=== PATIENT | female | born 1985 | race Caucasian/White ===

== ENCOUNTER 2024-06-04 14:36 | Emergency (ER) | payer MEDICAID, SELFPAY ==
[2024-06-04 14:37] VITALS: PULSE 87; O2SAT 98; BMI 42.9
[2024-06-04 14:54] VITALS: BP 163/83; PULSE 102; RESP 18; TEMP 36.9; O2SAT 98
--- NOTE | 2024-06-04 15:05 | PD.EDRME ---
Rapid Medical Screening Exam [facility] Arrival date/time: 06/04/24 14:36 39-year-old female presents to the emergency department complains of generalized weakness, fatigue, back pain and muscle spasms Chief Complaint: Back Pain/Injury Time Seen by Provider: 06/04/24 14:52 Vital signs: Vital Signs Temperature 98.5 F 06/04/24 14:54 Pulse Rate 102 H 06/04/24 14:54 Respiratory Rate 18 06/04/24 14:54 Blood Pressure 163/83 H 06/04/24 14:54 Pulse Oximetry (%) 98 06/04/24 14:54 Oxygen Delivery Method Room Air 06/04/24 14:54
[2024-06-04 15:44] LABS: Basophils # (Auto) 0.1 Thou/mm3 (0.0-0.2); Basophils % (Auto) 1 % (0-2.5); Eosinophils % (Auto) 0 % (0-10); Hematocrit 37.9 % (36.0-46.0); Hemoglobin 11.9 g/dL (12.0-16.0); Immature Granulocytes % (Auto) 0 % (0-0); Immature Granulocytes Auto 0.02 Thou/mm3 (0.00-0.00); Lymphocytes # (Auto) 1.3 Thou/mm3 (1.0-4.8); Lymphocytes % (Auto) 22 % (10-50); Mean Corpuscular HGB Conc 31.4 g/dl (31.0-37.0); Mean Corpuscular Volume 86 fL (80-100); Monocytes # (Auto) 0.3 Thou/mm3 (0.0-0.8); Monocytes % (Auto) 5 % (0-12); Neutrophils # (Auto) 4.4 Thou/mm3 (1.8-7.7); Neutrophils % (Auto) 72 % (37-80); Nucleated Red Blood Cell % 0 /100 WBC (0); Platelet Count 400 Thou/mm3 (140-440); RDW Standard Deviation 50.9 fL (36.4-46.3); Red Blood Count 4.41 Miln/mm3 (4.00-5.20); White Blood Count 6.1 Thou/mm3 (3.6-11.0)
[2024-06-04 15:53] LABS: Amphetamine/Methamp Scrn,U Negative (Negative); Barbiturate Screen,Urine Negative (Negative); Benzodiazepines Screen,Urine Positive (Negative); Benzoylecgonine Screen, Ur Negative (Negative); Fentanyl Screen,Urine Negative (Negative); Opiate Screen,Urine Negative (Negative); THC Screen,Urine Positive (Negative)
[2024-06-04 15:57] LABS: HCG,Qualitative Serum Negative
[2024-06-04 15:58] LABS: Partial Thromboplastin Time 33.9 Seconds (22.0-36.0); Prothrombin Time 11.1 Seconds (9.0-12.2)
[2024-06-04 16:09] LABS: Alanine Aminotransferase 15 U/L (10-49); Albumin, Serum 5.3 gm/dL (3.5-5.0); Albumin/Globulin Ratio 2.1 (1.2-2.2); Alcohol, Blood Medical < 10.0 mg/dL (0-10.0); Alkaline Phosphatase 68 U/L (46-116); Anion Gap 10 (7-16); Aspartate Amino Transferase < 8 U/L (0-34); BUN/Creatinine Ratio 9 Ratio (12-20); Bilirubin,Total 0.2 mg/dL (0.3-1.2); Blood Urea Nitrogen 8 mg/dL (9-23); Calcium 9.5 mg/dL (8.3-10.6); Calcium (Corrected) 9.5 mg/dL (8.5-10.1); Carbon Dioxide 24.4 mMol/L (20.0-31.0); Chloride 105 mMol/L (98-107); Creatinine (Component) 0.9 mg/dL (0.6-1.3); Estimated Creatinine Clearance 103.6 mL/min (>60); Globulin 2.5 gm/dL (2.3-3.5); Glucose 104 mg/dL (74-106); Magnesium 1.7 mg/dL (1.6-2.6); Osmolality,Calculated 275 (275-295); Potassium 4.1 mMol/L (3.4-5.1); Sodium 139 mMol/L (136-145); Total Protein 7.8 gm/dL (5.7-8.2); eGFR > 60 See Note
--- NOTE | 2024-06-04 18:29 | XR_ITS ---
Examination: CT lumbar spine, without contrast. 2-D sagittal reconstructions. 2-D coronal reconstructions. 3-D reconstructions. Date and time of exam:June 04, 2024 1847 hrs. Indications: Low back pain radiating down both legs beginning 3 days ago CTDI: vol (mGy):27 DLP: (mGycm):890 Technique: Multiple 1.25 mm axial sections of the lumbar spine without intravenous contrast have been obtained. 2-D sagittal and coronal reconstructions have been obtained. 3-D reconstructions have been obtained. Low dose protocols were performed. One or more of the following dose reduction techniques were used; automated exposure control, adjustment of the mA and/or KV according to patient size, use of iterative reconstruction technique. Findings: Mild osteopenia Moderate to advanced disc narrowing L5-S1 No spondylolisthesis L5-S1 3 mm central lumbar disc bulge contiguous with the S1 nerve roots L4-L5 2 mm central lumbar disc bulge L3-L4 no disc protrusion L2-L3 no disc protrusion L1-L2 no disc protrusion Impression: Moderate to advanced degenerative disc disease L5-S1 L5-S1 3 mm central lumbar disc bulge contiguous with the right and left S1 nerve roots L4-L5 2 mm central lumbar disc bulge As clinically warranted, MRI lumbar spine without contrast follow-up would be preferable in assessing the full extent of acquired soft tissue spinal stenosis
--- NOTE | 2024-06-04 18:30 | EDNOTE_ITS ---
<Statement entered by Adriana Howell MD - 06/13/24 16:24> As co-signing physician, I was present and available for consult prn. I concur with the plan and care as documented by the midlevel provider. ED General RME/HPI General Chief complaint: Back Pain/Injury Stated complaint: CHRONIC BACK/LEG PAIN Time Seen by Provider: 06/04/24 14:52 Arrival date/time: 06/04/24 14:36 CC: Twitching in her legs and arms HPI ongoing for the past 2 to 3 days patient has very anxious and emotional stating she has had ongoing issue with this for a long time . Patient states she was seen here for drinking alcohol to avoid the pain and twitching in her legs, patient states has been unable to see her PCP. Denies bowel or bladder symptoms saddle anesthesia numbness tingling or weakness in the lower extremities. Patient is tearful but not in any acute distress. RME / HPI RME / HPI narrative: 06/04/24 14:36 39-year-old female presents to the emergency department complains of generalized weakness, fatigue, back pain and muscle spasms Related Data Home Medications ?Medication ?Instructions ?Recorded ?Confirmed divalproex 500 mg tablet,delayed 1,000 mg PO BID 11/24/20 11/24/20 release ferrous sulfate 325 mg (65 mg 325 mg PO QDAY 11/24/20 04/15/24 iron) tablet (FeroSul) ibuprofen 600 mg tablet 400 mg PO Q8H PRN Pain 11/24/20 04/15/24 tizanidine 2 mg capsule 2 mg PO QHSPRN PRN Muscle Spasm 11/24/20 11/24/20 tizanidine 6 mg capsule 6 mg PO BID 04/15/24 04/15/24 Previous Rx's ?Medication ?Instructions ?Recorded albuterol sulfate 90 mcg/actuation 1 inh inhalation QID PRN shortness 11/28/23 aerosol inhaler of breath or wheezing #8.5 grams Allergies Allergy/AdvReac Type Severity Reaction Status Date / Time adhesive tape Allergy Severe RASH Verified 06/04/24 14:42 tramadol Allergy Severe BARBA Verified 06/04/24 14:42 zolpidem AdvReac Severe HALLUCINATI Verified 06/04/24 14:42 ONS Review of Systems Review of Systems Narrative Review of Systems: GEN: No fever, no chills, no weight loss EYES: No discharge, no visual changes, no pain HEENT: No ear pain, no congestion, no sore throat PULM: No shortness of breath, no cough, no congestion CV: No chest pain, no dyspnea on exertion, no palpitations GI: No nausea, no vomiting, no diarrhea, no pain, no constipation : No frequency, no urgency, no dysuria MUSC/SKEL: No joint pain, no back pain, + shaking and spasms in the arms and legs SKIN: No rash PSYCH: No hallucinations, no depression HEME/LYMPH: No easy bleeding or bruising tendencies NEURO: No weakness, no headache Past Medical History Past Medical History CARDIAC: Negative Cardiac Disorders or Congestive Heart Failure RESPIRATORY: Positive Asthma; Negative Chronic Obstructive Pulmonary Disease (COPD) GENITOURINARY: Negative Renal Disease ENDOCRINE: Negative Diabetes Mellitus Type 1 or Diabetes Mellitus Type 2 HEMATOLOGIC: Negative Sickle Cell Disease PSYCHO/SOCIAL: Positive Anxiety OTHER HISTORY: Positive Falls Social History SMOKING STATUS: Never smoker ED Exam Narrative Physical exam: [General: Obese very anxious but not in any acute distress Head normocephalic HEENT: Within acceptable limits Neck is supple nontender Chest equal chest rise nontender to palpation Respiratory: Clear to auscultation no wheezes crackles or rubs CV: Rate rhythm is regular no murmurs rubs or clicks Abdomen is distended secondary to body habitus soft nontender no masses positive bowel sounds all 4 quadrants Back: No CVA tenderness no spinous process tenderness from cervical spine thoracic and lumbar spine Skin: Intact no petechiae rash induration ulceration or crepitus Extremities: Moving all extremity against resistance cap refill less than 2 seconds neurosensory intact Neuro: Awake alert oriented x3 Glascow coma 15 no focal deficits] Course Quality Measures VTE prophylaxis Orders Category Date Time Status CT lumbar spine wo con Stat Exams 06/04/24 18:29 Completed Alcohol, Blood Medical Stat Lab 06/04/24 15:14 Completed CBC Stat Lab 06/04/24 15:14 Completed Comprehensive Metabolic Panel Stat Lab 06/04/24 15:14 Completed Drug Screen,Urine Stat Lab 06/04/24 15:20 Completed HCG,Qualitative Serum Stat Lab 06/04/24 15:14 Completed Mag [Magnesium] Stat Lab 06/04/24 15:14 Completed Partial Thromboplastin Time Stat Lab 06/04/24 15:14 Completed Prothrombin Time with INR Stat Lab 06/04/24 15:14 Completed Type and Screen Stat Lab 06/04/24 15:14 Completed Diazepam Inj [Valium Inj] Med 06/04/24 20:30 Discontinued 5 mg IM X1 ONE Ketorolac Inj [Toradol Inj] Med 06/04/24 20:28 Discontinued 30 mg IM X1 ONE Vital Signs Vital signs: Vital Signs Temperature 98.5 F 06/04/24 14:54 Pulse Rate 102 H 06/04/24 14:54 Respiratory Rate 18 06/04/24 14:54 Blood Pressure 163/83 H 06/04/24 14:54 Pulse Oximetry (%) 98 06/04/24 14:54 Oxygen Delivery Method Room Air 06/04/24 14:54 [facility] Patient data External records reviewed:: [facility] previous records Clinical information provided by:: none Social determinants that could affect healthcare access:: none Patient has the following chronic illnesses:: Alcoholism How is presenting disease/condition affected by chronic disease/condition?: u neffected by Evaluation data The following diagnostics were reviewed and interpreted by me:: lab results and radiology exam(s) Lab and/or radiology exams considered but not ordered:: CBC shows no acute leukocytosis anemia thrombocytopenia Coags within acceptable limits CMP shows no acute electrolyte imbalances renal impairment transaminitis or T. bili elevation hCG is negative Urine is positive for benzos and THC CT lumbar spine is negative for any acute finding requires emergent or immediate intervention. Interpretation Summary: At 1915, the patient was observed ambulating without complication. Had extensive conversation with the patient's if she has a complete line up with her PCP pain management will refer to the edi specialist as well as a neurologist appointment coming up in 7 days. The patient's just wants a shot so that she can go to sleep. The patient states she cannot live with his constant pain. The patient is not suicidal not homicidal but is looking for resolution of this chronic pain that she has. At this time I explained to her that she has no acute finding requires emergent or immediate interventions in the emergency room, and happy to accommodate her as much as I possibly can. The patient is refusing medications as she says the OxyContin's as well as the gabapentin's do not work. Patient will be discharged home to follow-up with primary care provider. Medications Medications considered but not ordered:: Plan Medication administrations:: Medication Administration History Discontinued Medications Diazepam (Diazepam Inj 5 Mg/Ml Vial 2 Ml) 5 mg IM X1 ONE Stop: 06/04/24 20:31 Last Admin: 06/04/24 20:47 Dose: 5 mg Documented By: SE Ketorolac Tromethamine (Ketorolac Inj 60 Mg/2 Ml Vial) 30 mg IM X1 ONE Stop: 06/04/24 20:29 Last Admin: 06/04/24 20:31 Dose: Not Given Documented By: SE Non-Admin Reason: Cancelled by Provider Diagnosis Consultations Consultation(s) initiated? (list below): No Diagnosis Differential Diagnosis ED Complaint MDM: Chronic MSK lumbar back pain upper back pain Most likely diagnosis given after review of the tests above:: Chronic Admission Indicated Admission indicated?: not indicated Explain why admission is indicated or not indicated:: Stable follow-up Admission Request Was there a request for admission?: No Disposition Plan Disposition Plan: Discharge Discharge Attestation Discharge Attestation: The patient and all family members were given an opportunity to ask questions and understood the discharge instructions. Discharge instructions specifically effects, indications for sooner follow up or return to the emergency department, and the expected course of current diagnosis. Patient condition: Stable Medical Decision Making Differential Diagnosis Differential Diagnosis: Chronic MSK lumbar back pain upper back pain Lab Data 06/04/24 15:14 06/04/24 15:14 Labs: Lab Results 06/04/24 06/04/24 Range/Units 15:14 15:20 WBC 6.1 (3.6-11.0) Thou/mm3 RBC 4.41 (4.00-5.20) Miln/mm3 Hgb 11.9 L (12.0-16.0) g/dL Hct 37.9 (36.0-46.0) % MCV 86 (80-100) fL MCH 27.0 (25.0-35.0) pg MCHC 31.4 (31.0-37.0) g/dl RDW Std Deviation 50.9 H (36.4-46.3) fL Plt Count 400 (140-440) Thou/mm3 Neut % (Auto) 72 (37-80) % Lymph % (Auto) 22 (10-50) % Cavalier % (Auto) 5 (0-12) % Eos % (Auto) 0 (0-10) % Baso % (Auto) 1 (0-2.5) % Neut # (Auto) 4.4 (1.8-7.7) Thou/mm3 Lymph # (Auto) 1.3 (1.0-4.8) Thou/mm3 Cavalier # (Auto) 0.3 (0.0-0.8) Thou/mm3 Eos # (Auto) 0.0 (0.0-0.5) Thou/mm3 Baso # (Auto) 0.1 (0.0-0.2) Thou/mm3 Immature Gran # (Auto) 0.02 H (0.00-0.00) Thou/mm3 Absolute Nucleated RBC 0.00 (0.00-0.00) Thou/mm3 Immature Gran % 0 (0-0) % Nucleated RBC % 0 (0) /100 WBC PT 11.1 (9.0-12.2) Seconds INR 1.0 (0.9-1.3) APTT 33.9 (22.0-36.0) Seconds Sodium 139 (136-145) mMol/L Potassium 4.1 (3.4-5.1) mMol/L Chloride 105 (98-107) mMol/L Carbon Dioxide 24.4 (20.0-31.0) mMol/L Anion Gap 10 (7-16) BUN 8 L (9-23) mg/dL Creatinine 0.9 (0.6-1.3) mg/dL Estim Creat Clear Calc 103.6 (>60) mL/min eGFR > 60 (60 - ) See Note BUN/Creatinine Ratio 9 L (12-20) Ratio Glucose 104 (74-106) mg/dL Calculated Osmolality 275 (275-295) Calcium 9.5 (8.3-10.6) mg/dL Corrected Calcium 9.5 (8.5-10.1) mg/dL Magnesium 1.7 (1.6-2.6) mg/dL Total Bilirubin 0.2 L (0.3-1.2) mg/dL AST < 8 (0-34) U/L ALT 15 (10-49) U/L Alkaline Phosphatase 68 (46-116) U/L Total Protein 7.8 (5.7-8.2) gm/dL Albumin 5.3 H (3.5-5.0) gm/dL Globulin 2.5 (2.3-3.5) gm/dL Albumin/Globulin Ratio 2.1 (1.2-2.2) HCG, Qual Negative Urine Opiates Screen Negative (Negative) Urine Fentanyl Screen Negative (Negative) Ur Barbiturates Screen Negative (Negative) U Amphetamin/Meth Scrn Negative (Negative) U Benzodiazepines Scrn Positive A (Negative) U Cocaine Metab Screen Negative (Negative) U Marijuana (THC) Screen Positive A (Negative) Ethyl Alcohol < 10.0 (0-10.0) mg/dL Blood Type AB Positive Antibody Screen NEGATIVE Blood Bank Wristband ID Yes Discharge Plan Plan Patient Disposition: HOME (Self Care) Prescriptions/Referrals Prescriptions/Med Rec: No Action divalproex 500 mg Tablet,Delayed Release (Dr/Ec) 1,000 mg PO BID ferrous sulfate [FeroSul] 325 mg (65 mg iron) Tablet 325 mg PO QDAY ibuprofen 600 mg Tablet 400 mg PO Q8H PRN (Reason: Pain) tizanidine 2 mg Capsule 2 mg PO QHSPRN PRN (Reason: Muscle Spasm) Rx Instructions: take 1 to 2 tabs at bedside. no more than 2 tabs daily albuterol sulfate 90 mcg/actuation HFA aerosol inhaler 1 inh inhalation QID PRN (Reason: shortness of breath or wheezing) Qty: 8.5 0RF tizanidine 6 mg capsule 6 mg PO BID Patient Comments: take 1 capsule by mouth twice a day if needed for muscle spasm MAY CAUSE DROWSINESS, DIZZNESS Referrals: Ralph Hidalgo MD [Physician] - In 1 week No Primary/Family,Physician [Primary Care Provider] - In 1 week Problem List Clinical Impression: Chronic pain Patient/Caregiver Discharge Instructions Education Materials: ED Chronic Pain Additional Instructions: Follow-up with pain management and the edi specialist. Consider exercising in a pool. Print Language: Greenlandic Stand Alone Forms: [employer] Award Info., Work/School Release, Patient Portal Info Letter PA/SKYLA Supervising Physician JUVE/SKYLA Supervising Physician: Tiffany Ram ENP
[2024-06-04] MEDS: DIAZEPAM INJ 5 MG/ML VIAL 2 ML IM (20:47)
== END 2024-06-04 20:52 | disposition home or self-care (01) ==
PROVIDERS: Nurse Practitioner Primary Care; Emergency Provider Emergency Medicine
DX: M54.50 Low back pain, unspecified (principal); G89.29 Other chronic pain
CPT/HCPCS: 36415; 72131; 80053; 80307; 80320; 83735; 84703; 85025; 85610; 85730; 86850; 86900; 86901; 96372; 99284; J3360; G0480

== ENCOUNTER 2024-12-06 18:45 | Inpatient (IN) | payer MEDICAID, SELFPAY ==
--- NOTE | 2024-12-06 18:49 | EKG_ITS ---
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
[2024-12-06 18:58] VITALS: BP 159/72; PULSE 119; RESP 20; TEMP 36.8; O2SAT 99; BMI 29.9
[2024-12-06 19:18] LABS: Basophils # (Auto) 0.0 Thou/mm3 (0.0-0.2); Basophils % (Auto) 0 % (0-2.5); Eosinophils # (Auto) 0.0 Thou/mm3 (0.0-0.5); Eosinophils % (Auto) 0 % (0-10); Hematocrit 34.8 % (36.0-46.0); Hemoglobin 11.3 g/dL (12.0-16.0); Immature Granulocytes Auto 0.02 Thou/mm3 (0.00-0.00); Lymphocytes # (Auto) 1.2 Thou/mm3 (1.0-4.8); Lymphocytes % (Auto) 15 % (10-50); Mean Corpuscular HGB Conc 32.5 g/dl (31.0-37.0); Mean Corpuscular Hemoglobin 28.1 pg (25.0-35.0); Mean Corpuscular Volume 87 fL (80-100); Monocytes # (Auto) 0.4 Thou/mm3 (0.0-0.8); Monocytes % (Auto) 5 % (0-12); Neutrophils # (Auto) 6.4 Thou/mm3 (1.8-7.7); Neutrophils % (Auto) 80 % (37-80); Nucleated Red Blood Cell # 0.00 Thou/mm3 (0.00-0.00); Nucleated Red Blood Cell % 0 /100 WBC (0); Platelet Count 378 Thou/mm3 (140-440); RDW Standard Deviation 46.9 fL (36.4-46.3); Red Blood Count 4.02 Miln/mm3 (4.00-5.20); White Blood Count 8.0 Thou/mm3 (3.6-11.0)
[2024-12-06] MEDS: DIAZEPAM 5 MG TABLET PO (19:23)
--- NOTE | 2024-12-06 19:27 | PD.EDANX ---
ED Anxiety RME/HPI General Chief Complaint: Anxiety Stated Complaint: Palpitations, anxiety, SOB, ETOH in am Time Seen by Provider: 12/06/24 18:47 Source: patient Arrival date/time: 12/06/24 18:45 Mode of arrival: ambulatory Limitations: no limitations RME / HPI RME / HPI narrative: 39-year-old female history anxiety, alcohol abuse, and prior suicide ideation is here today with active tremors after discontinuing alcohol use. She states her last drink was this morning. She drinks a bottle of whiskey every 2 to 3 days per her report. She states this morning, she had a few glasses of wine . Related Data Home Medications ?Medication ?Instructions ?Recorded ?Confirmed divalproex 500 mg tablet,delayed 1,000 mg PO BID 11/24/20 11/24/20 release ferrous sulfate 325 mg (65 mg 325 mg PO QDAY 11/24/20 04/15/24 iron) tablet (FeroSul) ibuprofen 600 mg tablet 400 mg PO Q8H PRN Pain 11/24/20 04/15/24 tizanidine 2 mg capsule 2 mg PO QHSPRN PRN Muscle Spasm 11/24/20 11/24/20 tizanidine 6 mg capsule 6 mg PO BID 04/15/24 04/15/24 Previous Rx's ?Medication ?Instructions ?Recorded albuterol sulfate 90 mcg/actuation 1 inh inhalation QID PRN shortness 11/28/23 aerosol inhaler of breath or wheezing #8.5 grams Allergies Allergy/AdvReac Type Severity Reaction Status Date / Time adhesive tape Allergy Severe RASH Verified 12/06/24 18:53 zolpidem AdvReac Severe HALLUCINATI Verified 12/06/24 18:53 ONS Review of Systems Review of Systems Systems Reviewed: All systems reviewed, normal except as documented ED Exam General Limitations: Present no limitations General appearance: Present alert and in no apparent distress Head Head exam: Present atraumatic Eye Eye exam: Present normal appearance, PERRL and EOMI ENT ENT exam: Present normal exam, normal oropharynx and mucous membranes moist Neck Neck exam: Present normal inspection, full ROM and trachea midline Chest Chest inspection: Present normal inspection and symmetric chest wall rise Respiratory Respiratory exam: Present normal lung sounds bilaterally Cardiovascular Cardiovascular exam: Present regular rate, normal rhythm and normal heart sounds Abdominal Exam Abdominal exam: Present soft and normal bowel sounds Extremities Exam Extremities exam: Present normal inspection and full ROM Back Exam Back exam: Present normal inspection and full ROM Neurological Exam Neurological exam: Present alert, oriented X3 and other (Resting tremors are present) Psychiatric Psychiatric exam: Present normal affect and normal mood Skin Skin exam: Present warm, dry, intact and normal color Course Quality Measures none Orders Category Date Time Status EKG (ED ONLY) *Do not use* NOW Care 12/06/24 18:50 Completed EKG (ED Only) Stat Exams 12/06/24 18:49 Draft Alcohol, Blood Medical Stat Lab 12/06/24 19:03 Received CBC Stat Lab 12/06/24 19:03 Received CMP [Comprehensive Metabolic Panel] Stat Lab 12/06/24 19:03 Received Drug Screen,Urine Stat Lab 12/06/24 18:50 Ordered HCG,Qualitative Serum Stat Lab 12/06/24 19:03 Received Mag [Magnesium] Stat Lab 12/06/24 19:03 Received Diazepam [Valium] Med 12/06/24 18:49 Discontinued 5 mg PO X1 ONE Sodium Chloride 0.9% 1000 ml [Ns] 1,000 ml Med 12/06/24 19:21 Active IV 999 mls/hr Vital Signs Vital signs: Vital Signs Temperature 98.3 F 12/06/24 18:58 Pulse Rate 119 H 12/06/24 18:58 Respiratory Rate 20 12/06/24 18:58 Blood Pressure 159/72 H 12/06/24 18:58 Pulse Oximetry (%) 99 12/06/24 18:58 Oxygen Delivery Method Room Air 12/06/24 18:58 Anxiety MDM Narrative MDM Narrative: 39-year-old female history anxiety, alcohol abuse, and prior suicide ideation is here today with active tremors after discontinuing alcohol use. She states her last drink was this morning. She drinks a bottle of whiskey every 2 to 3 days per her report. She states this morning, she had a few glasses of wine . On exam, patient is anxious. She has significant resting tremors. Review of chart notes reveal that patient has been admitted in the past for alcohol withdrawal. She is also been evaluated for suicidal ideation before. Patient's tachycardia improved and her symptoms improved after a dose of Valium and a bolus of 1 L NS. Wediscussed if she wanted to stay in the hospital for alcohol withdrawal and she was agreeable to this. Case discussed with attending ER physician. Will admit to medicine. At approximately 20:00 Case notes with our night warehouse selector hospitalist team who agreed to see the patient and admit. Patient data External records reviewed:: [facility] previous records Clinical information provided by:: patient and family Social determinants that could affect healthcare access:: mental health Patient has the following chronic illnesses:: Alcohol abuse, anxiety How is presenting disease/condition affected by chronic disease/condition?: exacerbated by Evaluation data The following diagnostics were reviewed and interpreted by me:: lab results and EKG tracing(s) (Sinus tachycardia [address] changes or dynamic T waves) Lab and/or radiology exams considered but not ordered:: n/a Interpretation Summary: No metabolic derangement Medications / Prescriptions Medications or Prescriptions considered but not ordered:: n/a Medication administrations:: Medication Administration History Sodium Chloride (Ns) 1,000 mls @ 999 mls/hr IV .Q1H1M ONE Stop: 12/06/24 20:21 Discontinued Medications Diazepam (Diazepam 5 Mg Tablet) 5 mg PO X1 ONE Stop: 12/06/24 18:50 Last Admin: 12/06/24 19:23 Dose: 5 mg Documented By: KF Consultations Consultation(s) initiated? (list below): No Diagnosis Differential diagnosis anxiety: panic disorder and acute anxiety Most likely diagnosis given after review of the tests above:: Alcohol withdrawal Admission Indicated Admission indicated?: indicated Admission Request Was there a request for admission?: Yes Admission Attestation Admission request attestation: Discussed case with [] from Hospitalist service regarding admission. Discussed patients ED course, exam findings, labs, and radiology results. The Hospitalist [agrees,declines] to accept the patient for admission. Disposition Plan Disposition Plan: Admit Discharge Plan Plan Patient Disposition: Admit Acute Care w/in Hospital Patient condition on transfer: Stable Prescriptions/Referrals Prescriptions/Med Rec: No Action divalproex 500 mg Tablet,Delayed Release (Dr/Ec) 1,000 mg PO BID ferrous sulfate [FeroSul] 325 mg (65 mg iron) Tablet 325 mg PO QDAY ibuprofen 600 mg Tablet 400 mg PO Q8H PRN (Reason: Pain) tizanidine 2 mg Capsule 2 mg PO QHSPRN PRN (Reason: Muscle Spasm) Rx Instructions: take 1 to 2 tabs at bedside. no more than 2 tabs daily albuterol sulfate 90 mcg/actuation HFA aerosol inhaler 1 inh inhalation QID PRN (Reason: shortness of breath or wheezing) Qty: 8.5 0RF tizanidine 6 mg capsule 6 mg PO BID Patient Comments: take 1 capsule by mouth twice a day if needed for muscle spasm MAY CAUSE DROWSINESS, DIZZNESS Referrals: Kathryn Paulson MD [Primary Care Provider] - In 1 week Problem List Clinical Impression: Alcohol withdrawal, Tachycardia Patient/Caregiver Discharge Instructions Print Language: Azeri Stand Alone Forms: [employer] Award Info., Patient Portal Info Letter
[2024-12-06 19:35] LABS: HCG,Qualitative Serum Negative
[2024-12-06] MEDS: SODIUM CHLORIDE 0.9% 1000 ML 1,000 ML 999 ML IV (19:41)
[2024-12-06 19:44] LABS: Alanine Aminotransferase 21 U/L (10-49); Albumin, Serum 4.8 gm/dL (3.5-5.0); Albumin/Globulin Ratio 1.7 (1.2-2.2); Alcohol, Blood Medical < 3.0 mg/dL (0-10.0); Alkaline Phosphatase 95 U/L (46-116); Anion Gap 14 (7-16); Aspartate Amino Transferase 29 U/L (0-34); BUN/Creatinine Ratio 8 Ratio (12-20); Bilirubin,Total 0.6 mg/dL (0.3-1.2); Blood Urea Nitrogen 6 mg/dL (9-23); Calcium 9.6 mg/dL (8.3-10.6); Calcium (Corrected) 9.6 mg/dL (8.5-10.1); Carbon Dioxide 27.5 mMol/L (20.0-31.0); Chloride 101 mMol/L (98-107); Creatinine (Component) 0.8 mg/dL (0.6-1.3); Estimated Creatinine Clearance 99.6 mL/min (>60); Globulin 2.8 gm/dL (2.3-3.5); Glucose 102 mg/dL (74-106); Magnesium 2.1 mg/dL (1.6-2.6); Osmolality,Calculated 280 (275-295); Potassium 3.7 mMol/L (3.4-5.1); Sodium 142 mMol/L (136-145); Total Protein 7.6 gm/dL (5.7-8.2); eGFR > 60 See Note
[2024-12-06 20:26] LABS: Amphetamine/Methamp Scrn,U Negative (Negative); Barbiturate Screen,Urine Negative (Negative); Benzodiazepines Screen,Urine Negative (Negative); Benzoylecgonine Screen, Ur Negative (Negative); Fentanyl Screen,Urine Negative (Negative); Opiate Screen,Urine Negative (Negative); THC Screen,Urine Negative (Negative)
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
[2024-12-06 21:31] VITALS: BP 153/103; PULSE 96; RESP 17; TEMP 37; O2SAT 99
--- NOTE | 2024-12-06 21:45 | PC.NURSE ---
pt awake and alert, reports came to er today d/t anxiety or possible alcohol withdrawal symptoms. pt reports started drinking whiskey 2 weeks ago d/t leaving out of town for work. began with taking 3 shots daily then i the past 4 days was drinking 1/2 a bottle of whiskey. today only took one shot in the morning. pt reports history of anxiety and is currently taking medications. pt calm and sitting on gurney in room. call light in reach.
[2024-12-06] MEDS: THIAMINE 100 MG TABLET PO (22:16)
--- NOTE | 2024-12-06 22:30 | PC.NURSE ---
pt at bedside. pt eating food at this time.
--- NOTE | 2024-12-06 23:28 | PC.NURSE ---
spoke with Dr. Toledo in regards to pt home medications, states will add to med list.
[2024-12-06 23:55] VITALS: BMI 31.3
[2024-12-07] VITALS (8 sets, daily range): BP systolic 108–147; BP diastolic 73–99; PULSE 44–103; RESP 12–18; TEMP 36.2–37; O2SAT 94–100
[2024-12-07 01:03] LABS: Cardiac Risk Estimate 2.7 RATIO (3.7-5.6); Cholesterol 229 mg/dL (132-200); HDL Cholesterol 85 mg/dL (40-60); LDL Cholesterol,Calculated 109 mg/dL (0-130); Triglycerides 174 mg/dL (30-150)
[2024-12-07 05:48] LABS: Basophils # (Auto) 0.0 Thou/mm3 (0.0-0.2); Basophils % (Auto) 0 % (0-2.5); Eosinophils # (Auto) 0.1 Thou/mm3 (0.0-0.5); Eosinophils % (Auto) 1 % (0-10); Hematocrit 33.8 % (36.0-46.0); Hemoglobin 10.8 g/dL (12.0-16.0); Immature Granulocytes Auto 0.01 Thou/mm3 (0.00-0.00); Lymphocytes # (Auto) 1.7 Thou/mm3 (1.0-4.8); Lymphocytes % (Auto) 31 % (10-50); Mean Corpuscular HGB Conc 32.0 g/dl (31.0-37.0); Mean Corpuscular Hemoglobin 27.3 pg (25.0-35.0); Mean Corpuscular Volume 85 fL (80-100); Monocytes # (Auto) 0.4 Thou/mm3 (0.0-0.8); Monocytes % (Auto) 8 % (0-12); Neutrophils # (Auto) 3.2 Thou/mm3 (1.8-7.7); Neutrophils % (Auto) 59 % (37-80); Nucleated Red Blood Cell # 0.00 Thou/mm3 (0.00-0.00); Nucleated Red Blood Cell % 0 /100 WBC (0); Platelet Count 361 Thou/mm3 (140-440); RDW Standard Deviation 46.0 fL (36.4-46.3); Red Blood Count 3.96 Miln/mm3 (4.00-5.20); White Blood Count 5.4 Thou/mm3 (3.6-11.0)
[2024-12-07 06:30] LABS: Alanine Aminotransferase 18 U/L (10-49); Albumin, Serum 4.3 gm/dL (3.5-5.0); Albumin/Globulin Ratio 1.7 (1.2-2.2); Alkaline Phosphatase 85 U/L (46-116); Anion Gap 12 (7-16); Aspartate Amino Transferase 22 U/L (0-34); BUN/Creatinine Ratio 10 Ratio (12-20); Bilirubin,Total 0.8 mg/dL (0.3-1.2); Blood Urea Nitrogen 8 mg/dL (9-23); Calcium 9.2 mg/dL (8.3-10.6); Calcium (Corrected) 9.2 mg/dL (8.5-10.1); Carbon Dioxide 28.6 mMol/L (20.0-31.0); Chloride 104 mMol/L (98-107); Creatinine (Component) 0.8 mg/dL (0.6-1.3); Estimated Creatinine Clearance 101.9 mL/min (>60); Globulin 2.5 gm/dL (2.3-3.5); Glucose 102 mg/dL (74-106); Magnesium 2.1 mg/dL (1.6-2.6); Osmolality,Calculated 287 (275-295); Phosphorous 4.2 mg/dL (2.4-5.1); Potassium 3.7 mMol/L (3.4-5.1); Sodium 145 mMol/L (136-145); Thyroid Stimulating Hormone 6.70 uIU/mL (0.55-4.78); Total Protein 6.8 gm/dL (5.7-8.2); eGFR > 60 See Note
[2024-12-07] MEDS: FERROUS SULF 325 MG TABLET PO (08:36)
[2024-12-07] MEDS: THIAMINE 100 MG TABLET PO (08:36)
[2024-12-07] MEDS: GABAPENTIN 300 MG CAPSULE PO (08:37)
[2024-12-07] MEDS: FOLIC ACID 1 MG TABLET PO (08:37)
--- NOTE | 2024-12-07 08:43 | PC.NURSE ---
Patient does not want SCDs on due to ambulatory, says not needed.
[2024-12-07] MEDS: LORazepam 2 MG/ML VIAL 0.5 MG IV ×2 (11:32→17:38)
--- NOTE | 2024-12-07 14:20 | ESPR_ITS ---
<Statement entered by Manoj Martell MD - 12/13/24 11:44> I reviewed above note and agree with findings and plans. I have also personally examined the patient with medicine team and went over assessment and plan with medical team including biomedical engineering internship and resident physician. Documentation for date of: 12/07/24 Subjective Subjective Interval history: Patient was seen and examined at bedside. A.m. vitals and labs reviewed. Patient is slightly anxious with mild tremors but notes that it has much improved since yesterday. Last time she drank alcohol was yesterday morning around 7 AM. Patient appears tearful and becomes visibly emotional when engaging conversation, demonstrating signs of sadness and psychological distress. She was able to sleep 6 hours last night. She does not have any suicidal ideation currently. Denies hallucination, chest pain, shortness of breath, fever, chills. Patient expresses a desire for early discharge. The medical team advised against discharge at this time due to the significant risks associated with alcohol withdrawal, including potential life-threatening complications. Exam Vital Signs Temp Pulse Resp BP Pulse Ox O2 Del Method 98.0 F 67 18 108/73 97 Room Air 12/07/24 12:00 12/07/24 12:00 12/07/24 12:00 12/07/24 12:00 12/07/24 12:12/07/24 12:00 Narrative Exam GENERAL: Patient is in normal mood and affect, cooperative HEENT: Normocephalic, atraumatic.? Pupils are equal and reactive.? Oral mucosa is moist. Patent Nares NECK: Supple, nontender, no thyromegaly, no JVD CARDIOVASCULAR: Heart regular rhythm no murmur or gallop rub or extra beats. LUNGS: Clear to auscultation bilaterally with symmetrical chest rise.? No laboring tachypnea or wheezing.? ABDOMEN: Soft, flat, nontender to palpation, no guarding or rebound tenderness.? EXTREMITIES: Nontender.? No edema.? No cyanosis.? Patient is able to move all 4 extremities well, with full ROM and good CSM. SKIN: Warm and dry, no jaundice or rashes noted. MUSCULOSKELETAL: No lumbar or midline bony tenderness.? NEURO: There is no focal neurologic deficits noted.? Objective Labs 12/07/24 04:15 12/07/24 04:15 Labs: Laboratory Results - last 24 hr 12/06/24 12/06/24 12/07/24 19:03 19:44 04:15 WBC 8.0 5.4 RBC 4.02 3.96 L Hgb 11.3 L 10.8 L Hct 34.8 L 33.8 L MCV 87 85 MCH 28.1 27.3 MCHC 32.5 32.0 RDW Std Deviation 46.9 H 46.0 Plt Count 378 361 Neut % (Auto) 80 59 Lymph % (Auto) 15 31 Rapides % (Auto) 5 8 Eos % (Auto) 0 1 Baso % (Auto) 0 0 Neut # (Auto) 6.4 3.2 Lymph # (Auto) 1.2 1.7 Rapides # (Auto) 0.4 0.4 Eos # (Auto) 0.0 0.1 Baso # (Auto) 0.0 0.0 Immature Gran # (Auto) 0.02 H 0.01 H Absolute Nucleated RBC 0.00 0.00 Immature Gran % 0 0 Nucleated RBC % 0 0 Sodium 142 145 Potassium 3.7 3.7 Chloride 101 104 Carbon Dioxide 27.5 28.6 Anion Gap 14 12 BUN 6 L 8 L Creatinine 0.8 0.8 Estim Creat Clear Calc 99.6 101.9 eGFR > 60 > 60 BUN/Creatinine Ratio 8 L 10 L Glucose 102 102 Calculated Osmolality 280 287 Calcium 9.6 9.2 Corrected Calcium 9.6 9.2 Phosphorus 4.2 Magnesium 2.1 2.1 Total Bilirubin 0.6 0.8 AST 29 22 ALT 21 18 Alkaline Phosphatase 95 85 Total Protein 7.6 6.8 Albumin 4.8 4.3 D Globulin 2.8 2.5 Albumin/Globulin Ratio 1.7 1.7 Triglycerides 174 H Cholesterol 229 H LDL Cholesterol, Calc 109 HDL Cholesterol 85 H Cholesterol/HDL Ratio 2.7 L TSH 6.70 H HCG, Qual Negative Urine Opiates Screen Negative Urine Fentanyl Screen Negative Ur Barbiturates Screen Negative U Amphetamin/Meth Scrn Negative U Benzodiazepines Scrn Negative U Cocaine Metab Screen Negative U Marijuana (THC) Screen Negative Ethyl Alcohol < 3.0 Quality Measures Quality Measures none Assessment & Plan Assessment Current Active Medications: Generic Name Dose Route Start Last Admin Trade Name Freq PRN Reason Stop Dose Admin Acetaminophen 650 mg 12/06/24 21:15 Acetaminophen 325 Mg Tablet PO 01/05/25 21:14 Q6H PRN PAIN SCALE 1-3 (mild Buprenorphine 2 Mg 0 ea 12/07/24 21:00 Sublingual Tablet SL 01/06/25 20:59 BID MARIAN Ferrous Sulfate 325 mg 12/07/24 09:00 12/07/24 08:36 Ferrous Sulf 325 Mg Tablet PO 01/06/25 08:59 325 mg QDAY MARIAN Administration Folic Acid 1 mg 12/07/24 09:00 12/07/24 08:37 Folic Acid 1 Mg Tablet PO 12/12/24 08:59 1 mg BID MARIAN Administration Gabapentin 600 mg 12/07/24 00:20 12/07/24 01:05 Gabapentin 300 Mg Capsule PO 01/06/25 00:19 Not Given HS MARIAN Gabapentin 300 mg 12/07/24 09:00 12/07/24 08:37 Gabapentin 300 Mg Capsule PO 01/06/25 08:59 300 mg QDAY MARIAN Administration Ibuprofen 400 mg 12/06/24 21:15 Ibuprofen Tab 400 Mg Tablet PO 01/05/25 21:14 Q6HR PRN Fever > 101 Lorazepam 1 mg 12/06/24 21:21 Lorazepam 2 Mg/Ml Vial IV 12/11/24 21:20 Q2HR PRN CIWA SCORE 14-19 Lorazepam 0.5 mg 12/06/24 21:21 12/07/24 11:32 Lorazepam 2 Mg/Ml Vial IV 12/11/24 21:20 0.5 mg Q2HR PRN Administration CIWA SCORE 8-13 Lorazepam 2 mg 12/06/24 21:21 Lorazepam 2 Mg/Ml Vial IV 12/11/24 21:20 Q2HR PRN CIWA SCORE 20-25 Lorazepam 2 mg 12/06/24 21:21 Lorazepam 2 Mg/Ml Vial IVP X1 PRN Breakthrough Agitation Ondansetron HCl 4 mg 12/06/24 21:15 Ondansetron Inj 2 Mg/Ml Inj 2 Ml IVP 01/05/25 21:14 Q6H PRN NAUSEA OR VOMITING Protocol Quetiapine Fumarate 300 mg 12/07/24 00:10 Quetiapine Fumarate 100 Mg Tablet PO 01/06/25 00:09 HS MARIAN Sennosides 1 tab 12/06/24 21:15 Senna Tablet PO 01/05/25 21:14 QDAY PRN constipation Protocol Temazepam 30 mg 12/07/24 00:10 Temazepam 15 Mg Capsule PO 12/12/24 00:09 HS [facility] Thiamine HCl 100 mg 12/06/24 21:30 12/07/24 08:36 Thiamine 100 Mg Tablet PO 12/11/24 21:29 100 mg BID MARIAN Administration Tizanidine HCl 6 mg 12/07/24 00:20 12/07/24 08:37 Tizanidine Hcl 2 Mg Tablet PO 01/06/25 00:19 6 mg BID MARIAN Administration Plan Ms. Quezada is a 39 year old female with past medical history significant for insomnia, Anxiety, chronic back pain and bilateral lower extremity pain and alcohol abuse. pt. present to the ED for tremors and confusions, pt. admits to binge drinking 30oz of whisky daily for the last 3 weeks. 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 #Elevated LFTs. #Watery diarrhea, resolved. #Acute calculus cholecystitis, ruled out by MRCP. -LFTs remain downtrending, ultrasound of the liver showed acute calculus cholecystitis, however MRCP ruled out cholecystitis. General Surgery was consulted. -CT of chest abdomen pelvis showed hepatomegaly, fatty infiltration, primary hepatocellular disease versus cirrhosis -Hepatitis panel was negative. Plan: -Zosyn and Vancomycin were discontinued. -continue monitoring LFTs. #Alcohol withdrawal. #Alcohol dependence. -Presents with tremors and confusion. Last drink midnight of 04/06. binge drinking 1 bottle of whisky for the last 3 weeks. -LFTs within normal limits. Likely a period of binge drinking rather than chronic alcohol abuse. -Given recent significant alcohol consumption, will modify home medications given and will be outlined in problems below. -CIWA today 6. Plan: -CIWA protocol -Librium 25 mg PO QID decreased to Qdaily -Folic acid 1 mg PO BID -Thiamine 100 mg PO BID -Aspiration precautions -Seizure precautions -Referral to social group worker #Sinusitis -facial pain with recent sinusitis, Pt. was taking antibiotics prior hospital admission Plan: -Augmentin and mucinex ordered #Primary hypertension. -Not prescribed antihypertensives other than clonidine. -Reports inconsistency with taking medications. Possible rebound hypertension. -Clonidine 0.2 mg HS #Insomnia. #Anxiety. -Patient follows-up with psychiatry in [place] -Will hold home topiramate, tomazepam given significant alcohol consumption and use of benzos for CIWA -Also limited in options for insomnia, given medications also cause 3D ANIMATOR depression -Adverse reaction to zolpidem (hallucinations) -Quetiapine 25 mg PO HS #chronic back pain -Hx of fracture disc. #chronic bilateral legs pain. -Pt. home meds include oxycodone and gabapentin -Vista 5/325 PRN -continue gabapentin -Continue home tizanidine 6mg twice daily as needed #Hypokalemia -resolved. #hypophosphatemia -resolved. #Acute kidney injury - resolved. Disposition: telemetry. Diet: Regular. DVT prophylaxis: heparin SC q12hr. GI prophylaxis: pantoprazole 40 mg PO. Assessment and plan discussed with my attending physician Dr. Jayshree Arce (PGY-1)- Internal medicine resident
--- NOTE | 2024-12-07 20:55 | PC.NURSE ---
patient wanting to leave AMA due to wanting to go with her 's work trip in the morning. Dr. Treviño at bedside to discuss with patient risks of leaving AMA. Patient states understanding. Form signed by patient indicating understanding risks.
--- NOTE | 2024-12-07 21:11 | PD.RESEVENT ---
Documentation for date of: 12/07/24 Event Note Event Note: 12/07/2024: Called around 8:30 PM regarding patient in room 367, asking to leave AMA. Patient seen and assessed in hospital bed while she was getting dressed; patient's significant other bedside as well. Patient denies having any concerning symptoms at this time and on assessment airway/breathing/circulation is patent. Patient is able to answer questions appropriately and is alert oriented x 3. Explained to the patient that it is not safe for her to leave at this time; moreover, was told that her medications with pharmacy will be released on 12/08 and that she will most likely be able to be discharged safely when morning team comes back on 12/08. Patient informed that leaving AGAINST MEDICAL ADVICE could result in permanent disability or even . Patient showed understanding and still requested to leave AGAINST MEDICAL ADVICE. Patient does not want to stay on till this morning and is asking to leave with her significant other. Galo Treviño, DO PGY-2 Internal Medicine - [facility]
== END 2024-12-07 21:10 | disposition left against medical advice (07) | DRG 770 ==
LOC: SERX 21:36 → SERHOLD 21:56 → S3SX 23:57
PROVIDERS: Physician Assistant Medical; Admitting Provider Internal Medicine; Emergency Provider Emergency Medicine; PCP Student in an Organized Health Care Education/Training Program; Visit Provider Student in an Organized Health Care Education/Training Program
DX: F10.239 Alcohol dependence with withdrawal, unspecified (principal); Y90.0 Blood alcohol level of less than 20 mg/100 ml; I10 Essential (primary) hypertension; G47.00 Insomnia, unspecified; F41.9 Anxiety disorder, unspecified; E87.6 Hypokalemia; E83.39 Other disorders of phosphorus metabolism; F31.9 Bipolar disorder, unspecified; F43.10 Post-traumatic stress disorder, unspecified; G89.29 Other chronic pain; N17.9 Acute kidney failure, unspecified; D64.9 Anemia, unspecified; Z53.29 Procedure and treatment not carried out because of patient's decision for other reasons; M54.9 Dorsalgia, unspecified; M79.604 Pain in right leg; M79.605 Pain in left leg
CPT/HCPCS: 36415; 80053; 80061; 80307; 80320; 83735; 84100; 84443; 84703; 85025; 93005; 93225; 96360; 96361; 99285; J2060; J7030; A9270; G0480

== ENCOUNTER 2025-03-31 21:56 | Emergency (ER) | payer MEDICAID, SELFPAY ==
--- NOTE | 2025-03-31 22:14 | PC.NURSE ---
JUAN from home. fount pt unconcious with empty pill bottle at side. Pt stated she drank while taking three of her muscle relaxers ( Tizanidine HCL), Pt denies SI, she wanted to just sleep. Per her narcanned pt. Pt has ho ansomnia, gastric sleeve, allergic to Ambien. VS guy into 40s - 60s. 132/87 bp, 97 RA, no IV access at this time. GCS 15, alert and oriented.
[2025-03-31 22:21] VITALS: BMI 31.6
[2025-03-31 22:23] VITALS: BP 122/85; PULSE 56; RESP 19; TEMP 36.8; O2SAT 98
[2025-03-31 22:25] VITALS: BP 122/85; PULSE 54; RESP 19; TEMP 36.7; O2SAT 98
[2025-03-31 23:56] LABS: Basophils # (Auto) 0.0 Thou/mm3 (0.0-0.2); Basophils % (Auto) 0 % (0-2.5); Eosinophils # (Auto) 0.0 Thou/mm3 (0.0-0.5); Eosinophils % (Auto) 0 % (0-10); Hematocrit 35.2 % (36.0-46.0); Hemoglobin 11.8 g/dL (12.0-16.0); Immature Granulocytes Auto 0.02 Thou/mm3 (0.00-0.00); Lymphocytes # (Auto) 0.6 Thou/mm3 (1.0-4.8); Lymphocytes % (Auto) 11 % (10-50); Mean Corpuscular HGB Conc 33.5 g/dl (31.0-37.0); Mean Corpuscular Hemoglobin 28.7 pg (25.0-35.0); Mean Corpuscular Volume 86 fL (80-100); Monocytes # (Auto) 0.3 Thou/mm3 (0.0-0.8); Monocytes % (Auto) 6 % (0-12); Neutrophils # (Auto) 4.4 Thou/mm3 (1.8-7.7); Neutrophils % (Auto) 82 % (37-80); Nucleated Red Blood Cell # 0.00 Thou/mm3 (0.00-0.00); Nucleated Red Blood Cell % 0 /100 WBC (0); Platelet Count 380 Thou/mm3 (140-440); RDW Standard Deviation 46.8 fL (36.4-46.3); Red Blood Count 4.11 Miln/mm3 (4.00-5.20); White Blood Count 5.4 Thou/mm3 (3.6-11.0)
[2025-03-31] MEDS: SODIUM CHLORIDE 0.9% 1000 ML 1,000 ML 999 ML IV (23:58)
[2025-04-01 00:21] LABS: Acetaminophen < 2.0 mcg/mL (10.0-20.0); Alanine Aminotransferase 17 U/L (10-49); Albumin, Serum 4.9 gm/dL (3.5-5.0); Albumin/Globulin Ratio 2.2 (1.2-2.2); Alcohol, Blood Medical 294.1 mg/dL (0-10.0); Alkaline Phosphatase 92 U/L (46-116); Anion Gap 18 (7-16); Aspartate Amino Transferase 45 U/L (0-34); BUN/Creatinine Ratio 10 Ratio (12-20); Bilirubin,Total 0.4 mg/dL (0.3-1.2); Blood Urea Nitrogen 8 mg/dL (9-23); Calcium 8.3 mg/dL (8.3-10.6); Calcium (Corrected) 8.3 mg/dL (8.5-10.1); Carbon Dioxide 21.2 mMol/L (20.0-31.0); Chloride 104 mMol/L (98-107); Creatinine (Component) 0.8 mg/dL (0.6-1.3); Estimated Creatinine Clearance 101.3 mL/min (>60); Globulin 2.2 gm/dL (2.3-3.5); Glucose 135 mg/dL (74-106); Osmolality,Calculated 285 (275-295); Potassium 4.4 mMol/L (3.4-5.1); Salicylate < 3.0 mg/dL; Sodium 143 mMol/L (136-145); Total Protein 7.1 gm/dL (5.7-8.2); eGFR > 60 See Note
--- NOTE | 2025-04-01 00:38 | PD.EDALCOH ---
ED Alcohol RME/HPI General Chief Complaint: Alcohol Stated Complaint: OD Time Seen by Provider: 03/31/25 23:30 Arrival date/time: 03/31/25 21:56 RME / HPI Chronic alcohol use: Yes RME / HPI narrative: DR. ADRIAN MAIN ED EVALUATION: Patient presenting on multiple psychoactive medications including Gabapentin and Seroquel. Patient took medications in succession at home in addition to Tizanidine at approximately 7 PM and found to be minimally responsive at 7:30 PM by and given Narcan with positive response. Patient began consuming alcohol shortly thereafter, and became concerned and presented patient to ED. Identified stressors but denies SI/HI, medications taken this evening were typical for her daily regimen, reportedly took 1 more muscle relaxant. PMH: Asthma, Anxiety, Depression, PTSD PSH: Non-contributory Allergies: Adhesive tape, Zolpidem Social: Frequent Alcohol, Denies illicit drug abuse Related Data Home Medications ?Medication ?Instructions ?Recorded ?Confirmed ferrous sulfate 325 mg (65 mg 325 mg PO QDAY 11/24/20 12/07/24 iron) tablet (FeroSul) ibuprofen 600 mg tablet 400 mg PO Q8H PRN Pain 11/24/20 12/07/24 tizanidine 6 mg capsule 6 mg PO BID 04/15/24 12/06/24 docusate sodium 100 mg capsule 100 mg PO .QD PRN constipation 12/06/24 12/06/24 gabapentin 300 mg capsule 300 mg PO QAM 12/06/24 12/06/24 gabapentin 600 mg tablet 600 mg PO HS 12/06/24 12/06/24 hydrocortisone 1 % topical cream 1 applic NM BID 12/06/24 12/07/24 quetiapine 100 mg tablet 300 mg PO HS 12/06/24 12/06/24 sennosides 8.6 mg tablet (senna) 17.2 mg PO HS PRN constipation 12/06/24 12/06/24 temazepam 15 mg capsule 30 mg PO HS 12/06/24 12/06/24 buprenorphine HCl 2 mg sublingual 4 mg BID 12/07/24 tablet magnesium oxide 400 mg (241.3 mg 400 mg PO QDAY 12/07/24 12/07/24 magnesium) tablet Previous Rx's ?Medication ?Instructions ?Recorded albuterol sulfate 90 mcg/actuation 1 inh inhalation QID PRN shortness 11/28/23 aerosol inhaler of breath or wheezing #8.5 grams Allergies Allergy/AdvReac Type Severity Reaction Status Date / Time adhesive tape Allergy Severe RASH Verified 12/06/24 18:53 zolpidem AdvReac Severe HALLUCINATI Verified 12/06/24 18:53 ONS Review of Systems Review of Systems Systems Reviewed: All systems reviewed, normal except as documented Past Medical History Past Medical History RESPIRATORY: Positive Asthma REPRODUCTIVE: Positive Previous Pregnancies PSYCHO/SOCIAL: Positive Depression, Anxiety and Post Traumatic Stress Disorder OTHER HISTORY: Positive Falls Surgical History SURGICAL: Positive Tonsillectomy, Gastric Bypass Surgery (gastric sleeve) and Section (x4) Social History SMOKING STATUS: Former smoker ED Exam Narrative Physical exam: GEN. APPEARANCE: The patient is alert awake oriented X-3 appears mildly anxious, lying down comfortably, does not look ill/toxic. Patient has good eye contact. Patient is cooperative. VITALS: All vitals were reviewed and the pulse ox is 98%, which is normal according to my interpretation HEENT: Normocephalic, atraumatic and nontender. Pupils are equal and reactive. Oral mucosa is moist. NECK: Supple, nontender, no meningismus, no JVD. There is no thyromegaly and no lymphadenopathy. CHEST: Nontender on palpation no deformity and no crepitus. CARDIOVASCULAR: Heart regular rhythm, no murmur or gallop rub or extra beats. LUNGS: Clear to auscultation bilaterally with symmetrical chest rise. No laboring tachypnea or wheezing. No intercostal subcostal retraction. No rales and no rhonchi. ABDOMEN: Soft, flat, nontender to palpation, no guarding or rebound tenderness. There are no abnormal masses palpated. No pulsatile masses or bruits. Active and normal bowel sounds. EXTREMITIES: Normal inspection and palpation. No edema. No cyanosis. Patient is able to move all 4 extremities well SKIN: Warm and dry, no rashes noted. MUSCULOSKELETAL: No lumbar or midline bony tenderness. There is no CVA tenderness. No paraspinal muscle spasm or tenderness. NEURO: Cranial nerves II through XII grossly intact. There are no focal neurologic deficits noted. GCS is 15 PSYCHIATRIC: Mildly agitated, speech-goal directed, no psychosis, Denies HI/SI. LYMPHATICS: No major lymphadenopathy noted. Course Quality Measures none Orders Category Date Time Status Acetaminophen Stat Lab 03/31/25 23:45 Completed Alcohol, Blood Medical Stat Lab 03/31/25 23:45 Completed CBC [CBC] Stat Lab 03/31/25 23:45 Completed CMP [Comprehensive Metabolic Panel] Stat Lab 03/31/25 23:45 Completed Drug Screen,Urine Stat Lab 03/31/25 23:37 Ordered Salicylate Stat Lab 03/31/25 23:45 Completed Urinalysis, C/S if Indicated Stat Lab 03/31/25 23:37 Ordered Sodium Chloride 0.9% 1000 ml [Ns] 1,000 ml Med 03/31/25 23:37 Discontinued IV 999 mls/hr Vital Signs Vital signs: Vital Signs Temperature 98.2 F 03/31/25 22:23 Pulse Rate 56 L 03/31/25 22:23 Respiratory Rate 19 03/31/25 22:23 Blood Pressure 122/85 H 03/31/25 22:23 Pulse Oximetry (%) 98 03/31/25 22:23 Oxygen Delivery Method Room Air 03/31/25 22:23 Discharge Plan Plan Patient Disposition: HOME (Self Care) Discharge Disposition comment: stable Prescriptions/Referrals Prescriptions/Med Rec: No Action ferrous sulfate [FeroSul] 325 mg (65 mg iron) Tablet 325 mg PO QDAY ibuprofen 600 mg Tablet 400 mg PO Q8H PRN (Reason: Pain) albuterol sulfate 90 mcg/actuation HFA aerosol inhaler 1 inh inhalation QID PRN (Reason: shortness of breath or wheezing) Qty: 8.5 0RF quetiapine 100 mg tablet 300 mg PO HS Patient Comments: PLEASE SEE ATTACHED FOR DETAILED DIRECTIONS gabapentin 300 mg capsule 300 mg PO QAM Patient Comments: TAKE 1 CAPSULE BY MOUTH IN THE MORNING AND TAKE 2 CAPSULES IN THE EVENING gabapentin 600 mg tablet 600 mg PO HS temazepam 15 mg capsule 30 mg PO HS Patient Comments: TAKE 1 CAPSULE BY MOUTH ON SUNDAY AND SUNDAY. OK TO TAKE 2 CAPSULES ON OTHER DAYS docusate sodium 100 mg capsule 100 mg PO .QD PRN (Reason: constipation) Patient Comments: TAKE 1 CAPSULE BY MOUTH TWICE A DAY NEEDED FOR CONSTIPATION sennosides [senna] 8.6 mg tablet 17.2 mg PO HS PRN (Reason: constipation) Patient Comments: TAKE 2 TABLETS BY MOUTH EVERY DAY AT BEDTIME NEEDED FOR CONSTIPATION hydrocortisone 1 % cream 1 applic NM BID Patient Comments: APPLY TO AFFECTED AREA TWICE A DAY FOR 10 DAYS magnesium oxide 400 mg (241.3 mg magnesium) tablet 400 mg PO QDAY Patient Comments: take 1 tablet by mouth once daily buprenorphine HCl 2 mg tablet, sublingual 4 mg BID Patient Comments: TAKE 2 TABS IN THE MORNING AND 2 TABS IN THE EVENING. DO NOT TAKE WITH OTHER OPIOIDS tizanidine 6 mg capsule 6 mg PO BID Patient Comments: take 1 capsule by mouth twice a day if needed for muscle spasm MAY CAUSE DROWSINESS, DIZZNESS Referrals: No Primary/Family,Physician [Primary Care Provider] - In 1 week Problem List Clinical Impression: Alcoholic intoxication, Polypharmacy, Generalized anxiety disorder Impression comment: Alcohol intoxication/polypharmacy Patient/Caregiver Discharge Instructions Discharge Activity: activity as tolerated Education Materials: Social Drinking vs Problem Drinking, ED Alcohol Intoxication Additional Instructions: Please avoid alcohol consumption when taking medications. Follow-up with primary care doctor in 3 to 5 days and return if worsening. Print Language: Namibian Stand Alone Forms: Vonnie Award Info., Patient Portal Info Letter Alcohol MDM Narrative MDM Narrative: Scribe Attestation: Kristy Osorio, am scribing for and in the presence of Dr. Adrian. Provider Notation: Although this document has been carefully reviewed, there may still be some phonetic and other typographical errors. These errors are purely grammatical due to imperfections in the software program and should not be construed in any way to compromise the substance of the patient's medical care during this visit. Patient presenting on multiple psychoactive medications including Gabapentin and Seroquel. Patient took medications in succession at home in addition to Tizanidine at approximately 7 PM and found to be minimally responsive at 7:30 PM by and given Narcan with positive response. Please see PE findings. Laboratory markers demonstrate a normal WBC, chronic anemia, and normal platelet count with no left shift or associated bandemia. Serum chemistries essentially unremarkable with mildly elevated glucose of 135. Anion GAP mildly elevated at 18. Acetaminophen and salicylates undetected. Ethyl alcohol of 294. Patient was placed on placed on engine monitor and hydrated with NS and remained stable throughout ED course. Patient will likely discharged to home in custody of with precautionary instructions issued. Patienet was counseled on importance of taking medications exactly as directed. Final diagnosis includes non-toxic intentional ingestion, generalized anxiety disorder, alcohol intoxication. Patient data External records reviewed:: [facility] previous records (Reviewed prior ED records from 12/06/24. Patient was seen for Alcohol withdrawal.) and EMS form Clinical information provided by:: patient and EMS Social determinants that could affect healthcare access:: alcohol use Patient has the following chronic illnesses:: Anxiety, Asthma How is presenting disease/condition affected by chronic disease/condition?: exacerbated by Evaluation data The following diagnostics were reviewed and interpreted by me:: lab results Lab and/or radiology exams considered but not ordered:: None Interpretation Summary: See MDM above Medications / Prescriptions Medications or Prescriptions considered but not ordered:: None Medication administrations:: Medication Administration History Discontinued Medications Sodium Chloride (Ns) 1,000 mls @ 999 mls/hr IV .Q1H1M ONE Stop: 04/01/25 00:37 Last Admin: 03/31/25 23:58 Dose: 999 mls/hr Documented By: AC See above if any Consultations Consultation(s) initiated? (list below): No Diagnosis Differential diagnosis alcohol: alcohol withdrawal delirium, hypomagnesemia, alcohol intoxication, alcohol withdrawal syndrome and other (Druge overdose, Drug-induced psychosis) Most likely diagnosis given after review of the tests above:: non-toxic intentional ingestion, generalized anxiety disorder, alcohol intoxication. Admission Indicated Admission indicated?: not indicated Explain why admission is indicated or not indicated:: Patient does not meet admission criteria Admission Request Was there a request for admission?: No Disposition Plan Disposition Plan: Discharge Discharge Attestation Discharge Attestation: The patient and all family members were given an opportunity to ask questions and understood the discharge instructions. Discharge instructions specifically effects, indications for sooner follow up or return to the emergency department, and the expected course of current diagnosis. Patient condition: Stable
[2025-04-01 03:05] VITALS: RESP 18
== END 2025-04-01 03:06 | disposition home or self-care (01) ==
PROVIDERS: Emergency Provider Emergency Medicine
DX: F10.129 Alcohol abuse with intoxication, unspecified (principal); Y90.9 Presence of alcohol in blood, level not specified
CPT/HCPCS: 36415; 80053; 80307; 80320; 80329; 81001; 85025; 96360; 99282; J7030; G0480

== ENCOUNTER 2025-04-01 19:44 | Emergency (ER) | payer MEDICAID, SELFPAY ==
[2025-04-01 19:45] VITALS: BMI 29.1
[2025-04-01 20:51] VITALS: BP 124/78; PULSE 154; RESP 20; TEMP 36.9; O2SAT 98
--- NOTE | 2025-04-01 20:55 | EKG_ITS ---
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1985 Requested By: Esteban Gallo Order Number: [id number] Reading MD: Esteban Gallo Measurements Intervals [place] Rate: 149 P: 19 DC: 137 QRS: -53 QRSD: 84 T: 30 QT: 331 QTc: 522 Interpretive Statements SINUS TACHYCARDIA, POSSIBLE ATRIAL FLUTTER LEFT ANTERIOR FASCICULAR BLOCK [QRS AXIS <= -45, QR IN I, RS IN II] POSSIBLE ANTERIOR MYOCARDIAL INFARCTION , PROBABLY OLD [30 ms Q WAVE IN V3/V4, OR R < 0.2 mV IN V4] INFERIOR MYOCARDIAL INFARCTION , PROBABLY OLD [40+ ms Q WAVE AND/OR ST/T ABNORMALITY IN II/aVF] Compared to ECG 12/06/2024 19:02:24 Left anterior fascicular block now present Myocardial infarct finding still present /store/S0/[id number]
--- NOTE | 2025-04-01 21:03 | PD.EDRME ---
Rapid Medical Screening Exam [facility] Arrival date/time: 04/01/25 19:44 40F with history of alcohol abuse presents to ED with withdrawal symptoms. Patient recently here for this. Chief Complaint: Alcohol Vital signs: Vital Signs Temperature 98.4 F 04/01/25 20:51 Pulse Rate 154 H 04/01/25 20:51 Respiratory Rate 20 04/01/25 20:51 Blood Pressure 124/78 04/01/25 20:51 Pulse Oximetry (%) 98 04/01/25 20:51 Oxygen Delivery Method Room Air 04/01/25 20:51 Exam: Tremors and anxious Clinical Impression: alcohol withdrawal
[2025-04-01] MEDS: LORazepam 2 MG/ML VIAL IM (21:25)
[2025-04-01 21:31] LABS: Basophils # (Auto) 0.0 Thou/mm3 (0.0-0.2); Basophils % (Auto) 0 % (0-2.5); Eosinophils # (Auto) 0.0 Thou/mm3 (0.0-0.5); Eosinophils % (Auto) 0 % (0-10); Hematocrit 31.5 % (36.0-46.0); Hemoglobin 10.4 g/dL (12.0-16.0); Immature Granulocytes Auto 0.01 Thou/mm3 (0.00-0.00); Lactate (Lactic Acid) 2.2 mMol/L (0.4-2.0); Lymphocytes # (Auto) 0.8 Thou/mm3 (1.0-4.8); Lymphocytes % (Auto) 17 % (10-50); Mean Corpuscular HGB Conc 33.0 g/dl (31.0-37.0); Mean Corpuscular Hemoglobin 28.1 pg (25.0-35.0); Mean Corpuscular Volume 85 fL (80-100); Monocytes # (Auto) 0.5 Thou/mm3 (0.0-0.8); Monocytes % (Auto) 12 % (0-12); Neutrophils # (Auto) 3.2 Thou/mm3 (1.8-7.7); Neutrophils % (Auto) 71 % (37-80); Nucleated Red Blood Cell # 0.00 Thou/mm3 (0.00-0.00); Nucleated Red Blood Cell % 0 /100 WBC (0); Platelet Count 284 Thou/mm3 (140-440); RDW Standard Deviation 46.4 fL (36.4-46.3); Red Blood Count 3.70 Miln/mm3 (4.00-5.20); White Blood Count 4.6 Thou/mm3 (3.6-11.0)
[2025-04-01 21:50] LABS: Collection Type, Urine Clean Catch
[2025-04-01 21:57] LABS: HCG Qualitative,Urine Negative
[2025-04-01 22:01] LABS: Alanine Aminotransferase 22 U/L (10-49); Albumin, Serum 4.9 gm/dL (3.5-5.0); Albumin/Globulin Ratio 2.1 (1.2-2.2); Alcohol, Blood Medical < 3.0 mg/dL (0-10.0); Alkaline Phosphatase 126 U/L (46-116); Anion Gap 14 (7-16); Aspartate Amino Transferase 46 U/L (0-34); BUN/Creatinine Ratio 8 Ratio (12-20); Bilirubin,Total 0.8 mg/dL (0.3-1.2); Blood Urea Nitrogen 6 mg/dL (9-23); Calcium 9.2 mg/dL (8.3-10.6); Calcium (Corrected) 9.2 mg/dL (8.5-10.1); Carbon Dioxide 25.2 mMol/L (20.0-31.0); Chloride 97 mMol/L (98-107); Creatinine (Component) 0.8 mg/dL (0.6-1.3); Estimated Creatinine Clearance 97.3 mL/min (>60); Globulin 2.3 gm/dL (2.3-3.5); Glucose 100 mg/dL (74-106); Osmolality,Calculated 269 (275-295); Potassium 3.2 mMol/L (3.4-5.1); Sodium 136 mMol/L (136-145); Total Protein 7.2 gm/dL (5.7-8.2); eGFR > 60 See Note
[2025-04-01 22:05] LABS: Bacteria,Urine Rare; Bilirubin,Urine Negative (Negative); Blood,Urine Negative (Negative); Clarity,Urine Clear (Clear/Hazy); Color,Urine Colorless (Lt Yel-Yel); Culture Indicated,Urine Not Indicated; Glucose, Urine Negative (Negative); Ketones,Urine Trace (Negative); Leukocyte Esterase,Urine Negative (Negative); Nitrite,Urine Negative (Negative); PH,Urine 6.5 (5.0-7.0); Protein,Urine Negative (Neg - Trace); RBC,Urine 1 /hpf (0-3); Specific Gravity,Urine 1.004 (1.001-1.035); Squamous Epithelial Cell,Urine 1 /hpf (0-5); Urobilinogen,Urine Negative mg/dL (0.0-1.0); WBC,Urine 2 /hpf (0-5)
[2025-04-01 22:06] LABS: Amphetamine/Methamp Scrn,U Negative (Negative); Barbiturate Screen,Urine Negative (Negative); Benzodiazepines Screen,Urine Negative (Negative); Benzoylecgonine Screen, Ur Negative (Negative); Fentanyl Screen,Urine Negative (Negative); Opiate Screen,Urine Negative (Negative); THC Screen,Urine Positive (Negative)
--- NOTE | 2025-04-01 23:40 | PD.EDALCOH ---
ED Alcohol RME/HPI General Chief Complaint: Alcohol Stated Complaint: ALCOHOL WITHDRAWL Time Seen by Provider: 04/01/25 23:38 Arrival date/time: 04/01/25 19:44 RME / HPI RME / HPI narrative: 04/01/25 19:44 40F with history of alcohol abuse presents to ED with withdrawal symptoms. Patient recently here for this. Dr. Schroeder?s Main ED Evaluation: 40yo female with a history of alcohol abuse presents to the ED for complaints of generalized body aches, palpitations, nausea, and shaking. Patient states she has not drank alcohol today and is trying to quit. Patient denies any vomiting, fever, or any other associated symptoms. Related Data Home Medications ?Medication ?Instructions ?Recorded ?Confirmed ferrous sulfate 325 mg (65 mg 325 mg PO QDAY 11/24/20 12/07/24 iron) tablet (FeroSul) ibuprofen 600 mg tablet 400 mg PO Q8H PRN Pain 11/24/20 12/07/24 tizanidine 6 mg capsule 6 mg PO BID 04/15/24 12/06/24 docusate sodium 100 mg capsule 100 mg PO .QD PRN constipation 12/06/24 12/06/24 gabapentin 300 mg capsule 300 mg PO QAM 12/06/24 12/06/24 gabapentin 600 mg tablet 600 mg PO HS 12/06/24 12/06/24 hydrocortisone 1 % topical cream 1 applic MO BID 12/06/24 12/07/24 quetiapine 100 mg tablet 300 mg PO HS 12/06/24 12/06/24 sennosides 8.6 mg tablet (senna) 17.2 mg PO HS PRN constipation 12/06/24 12/06/24 temazepam 15 mg capsule 30 mg PO HS 12/06/24 12/06/24 buprenorphine HCl 2 mg sublingual 4 mg BID 12/07/24 tablet magnesium oxide 400 mg (241.3 mg 400 mg PO QDAY 12/07/24 12/07/24 magnesium) tablet Previous Rx's ?Medication ?Instructions ?Recorded albuterol sulfate 90 mcg/actuation 1 inh inhalation QID PRN shortness 11/28/23 aerosol inhaler of breath or wheezing #8.5 grams chlordiazepoxide HCl 25 mg capsule 25 mg PO TID PRN agitation #20 caps 10/30/25 chlordiazepoxide HCl 25 mg capsule 25 mg PO TID PRN agitation #20 caps 04/02/25 Allergies Allergy/AdvReac Type Severity Reaction Status Date / Time adhesive tape Allergy Severe RASH Verified 04/01/25 19:45 zolpidem AdvReac Severe HALLUCINATI Verified 04/01/25 19:45 ONS Review of Systems Review of Systems Systems Reviewed: All systems reviewed, normal except as documented Past Medical History Past Medical History CARDIAC: Negative Cardiac Disorders or Congestive Heart Failure RESPIRATORY: Positive Asthma; Negative Chronic Obstructive Pulmonary Disease (COPD) GENITOURINARY: Negative Renal Disease REPRODUCTIVE: Positive Previous Pregnancies ENDOCRINE: Negative Diabetes Mellitus Type 1 or Diabetes Mellitus Type 2 HEMATOLOGIC: Negative Sickle Cell Disease PSYCHO/SOCIAL: Positive Depression, Anxiety and Post Traumatic Stress Disorder OTHER HISTORY: Positive Falls Surgical History SURGICAL: Positive Tonsillectomy, Gastric Bypass Surgery (gastric sleeve) and Section (x4) Social History SMOKING STATUS: Never smoker ED Exam Narrative Physical exam: Generally patient is alert mildly tremulous, heart tachycardic rate with regular rhythm, lungs clear to auscultation equal laterally, abdomen soft bowel sounds present also nontender, neurologic exam Mer Coma Scale of 15 without focal motor deficits, no ataxia Course Quality Measures none Orders Category Date Time Status EKG (ED ONLY) *Do not use* NOW Care 04/01/25 20:55 Completed EKG (ED Only) Stat Exams 04/01/25 20:55 Draft Alcohol, Blood Medical Stat Lab 04/01/25 21:18 Completed CBC Stat Lab 04/01/25 21:18 Completed CMP [Comprehensive Metabolic Panel] Stat Lab 04/01/25 21:18 Completed Drug Screen,Urine Stat Lab 04/01/25 21:07 Completed HCG Qualitative,Urine Stat Lab 04/01/25 21:07 Completed Lactate (Lactic Acid) Stat Lab 04/01/25 21:18 Completed Lactic Acid, 3 HR Stat Lab 04/02/25 00:39 Completed Urinalysis, C/S if Indicated Stat Lab 04/01/25 21:07 Completed LORazepam [Ativan Inj] Med 04/01/25 21:03 Discontinued 2 mg IM X1 ONE Ondansetron Odt [Zofran Odt] Med 04/01/25 23:44 Discontinued 4 mg PO X1 ONE PHENobarbital Inj 130 mg Med 04/01/25 23:44 Discontinued Sodium Chloride 0.9% Flush [NS Flush] 12 ml IVP X1 PHENobarbital Inj 130 mg Med 04/02/25 01:36 Discontinued Sodium Chloride 0.9% Flush [NS Flush] 12 ml IVP X1 Potassium Chloride [K-Dur] Med 04/01/25 23:44 Discontinued 60 meq PO X1 ONE Vital Signs Vital signs: Vital Signs Temperature 98.4 F 04/01/25 20:51 Pulse Rate 154 H 04/01/25 20:51 Respiratory Rate 20 04/01/25 20:51 Blood Pressure 124/78 04/01/25 20:51 Pulse Oximetry (%) 98 04/01/25 20:51 Oxygen Delivery Method Room Air 04/01/25 20:51 Discharge Plan Plan Patient Disposition: HOME (Self Care) Prescriptions/Referrals Prescriptions/Med Rec: New chlordiazepoxide HCl 25 mg capsule 25 mg PO TID PRN (Reason: agitation) Qty: 20 0RF chlordiazepoxide HCl 25 mg capsule 25 mg PO TID PRN (Reason: agitation) Qty: 20 0RF No Action ferrous sulfate [FeroSul] 325 mg (65 mg iron) Tablet 325 mg PO QDAY ibuprofen 600 mg Tablet 400 mg PO Q8H PRN (Reason: Pain) albuterol sulfate 90 mcg/actuation HFA aerosol inhaler 1 inh inhalation QID PRN (Reason: shortness of breath or wheezing) Qty: 8.5 0RF quetiapine 100 mg tablet 300 mg PO HS Patient Comments: PLEASE SEE ATTACHED FOR DETAILED DIRECTIONS gabapentin 300 mg capsule 300 mg PO QAM Patient Comments: TAKE 1 CAPSULE BY MOUTH IN THE MORNING AND TAKE 2 CAPSULES IN THE EVENING gabapentin 600 mg tablet 600 mg PO HS temazepam 15 mg capsule 30 mg PO HS Patient Comments: TAKE 1 CAPSULE BY MOUTH ON SUNDAY AND SUNDAY. OK TO TAKE 2 CAPSULES ON OTHER DAYS docusate sodium 100 mg capsule 100 mg PO .QD PRN (Reason: constipation) Patient Comments: TAKE 1 CAPSULE BY MOUTH TWICE A DAY NEEDED FOR CONSTIPATION sennosides [senna] 8.6 mg tablet 17.2 mg PO HS PRN (Reason: constipation) Patient Comments: TAKE 2 TABLETS BY MOUTH EVERY DAY AT BEDTIME NEEDED FOR CONSTIPATION hydrocortisone 1 % cream 1 applic MO BID Patient Comments: APPLY TO AFFECTED AREA TWICE A DAY FOR 10 DAYS magnesium oxide 400 mg (241.3 mg magnesium) tablet 400 mg PO QDAY Patient Comments: take 1 tablet by mouth once daily buprenorphine HCl 2 mg tablet, sublingual 4 mg BID Patient Comments: TAKE 2 TABS IN THE MORNING AND 2 TABS IN THE EVENING. DO NOT TAKE WITH OTHER OPIOIDS tizanidine 6 mg capsule 6 mg PO BID Patient Comments: take 1 capsule by mouth twice a day if needed for muscle spasm MAY CAUSE DROWSINESS, DIZZNESS Referrals: Ralph Hidalgo MD [Primary Care Provider, Family Practice] - In 1 week Problem List Clinical Impression: Alcohol withdrawal Patient/Caregiver Discharge Instructions Education Materials: Alcohol Withdrawal: What to Expect Additional Instructions: Take the medication as prescribed. Avoid alcohol. Follow-up with your doctor. Return to ER as needed or if condition worsens. Print Language: Martiniquais Stand Alone Forms: Vonnie Award Info., Patient Portal Info Letter Alcohol MDM Narrative MDM Narrative: Scribe Attestation: 04/01/25 - Jo, Hien Hidalgo am scribing for and in the presence of Dr. Schroeder. Patient is withdrawing from alcohol. Last night alcohol level was 294 and tonight is less than 3. Patient received phenobarbital 130 mg IV x 2 with benefit. She was also given Zofran 4 mg p.o. She feels well and wishes to go home. Patient will be discharged on Librium to be taken as prescribed. Zofran as prescribed. Avoid alcohol. Follow-up with her doctor. Return to ER as needed or if condition worsens. I interpreted all labs. Patient is not an alcoholic ketoacidosis. EKG shows sinus tachycardia without ischemic change. Patient data External records reviewed:: [facility] previous records (Per chart review, patient was seen here early this morning for alcohol intoxication.) Clinical information provided by:: patient Social determinants that could affect healthcare access:: alcohol use Patient has the following chronic illnesses:: none How is presenting disease/condition affected by chronic disease/condition?: no chronic disease Evaluation data The following diagnostics were reviewed and interpreted by me:: lab results and EKG tracing(s) Lab and/or radiology exams considered but not ordered:: none Interpretation Summary: See MDM. Medications / Prescriptions Medications or Prescriptions considered but not ordered:: none Medication administrations:: Medication Administration History Discontinued Medications Phenobarbital Sodium 130 mg/ (Sodium Chloride 12 ml) 0 mg IVP X1 ONE Stop: 04/01/25 23:45 Last Admin: 04/02/25 00:46 Dose: 130 mg Documented By: TAD Phenobarbital Sodium 130 mg/ (Sodium Chloride 12 ml) 0 mg IVP X1 ONE Stop: 04/02/25 01:37 Last Admin: 04/02/25 01:43 Dose: 130 mg Documented By: NIDIA Lorazepam (Lorazepam 2 Mg/Ml Vial) 2 mg IM X1 ONE Stop: 04/01/25 21:04 Last Admin: 04/01/25 21:25 Dose: 2 mg Documented By: Ondansetron HCl (Ondansetron Odt 4 Mg Tabrap) 4 mg PO X1 ONE; Protocol Stop: 04/01/25 23:45 Last Admin: 04/02/25 00:47 Dose: 4 mg Documented By: SF Potassium Chloride (Potassium Chloride 20 Meq Tabcr) 60 meq PO X1 ONE Stop: 04/01/25 23:45 Last Admin: 04/02/25 01:00 Dose: Not Given Documented By: TAD Non-Admin Reason: Patient Refused see above Consultations Consultation(s) initiated? (list below): No Diagnosis Differential diagnosis alcohol: other (See MDM) Most likely diagnosis given after review of the tests above:: see clinical impression below Admission Indicated Admission indicated?: not indicated Admission Request Was there a request for admission?: No Disposition Plan Disposition Plan: Discharge Discharge Attestation Discharge Attestation: The patient and all family members were given an opportunity to ask questions and understood the discharge instructions. Discharge instructions specifically effects, indications for sooner follow up or return to the emergency department, and the expected course of current diagnosis. Patient condition: Stable
[2025-04-02 00:25] LABS: Reflex Lactate? Y
[2025-04-02] MEDS: PHENobarbital Inj 130 MG, SODIUM CHLORIDE 0.9% FLUSH 12 ML IVP ×2 (00:46→01:43)
[2025-04-02] MEDS: ONDANSETRON ODT 4 MG TABRAP PO (00:47)
[2025-04-02 00:48] LABS: Lactic Acid, 3 HR 1.1 mMol/L (0.4-2.0)
[2025-04-02 01:24] VITALS: BP 144/89; PULSE 106; RESP 18; TEMP 36.9; O2SAT 97
== END 2025-04-02 01:57 | disposition home or self-care (01) ==
PROVIDERS: Physician Assistant; Emergency Provider Emergency Medicine; PCP Family Medicine
DX: F10.239 Alcohol dependence with withdrawal, unspecified (principal)
CPT/HCPCS: 36415; 80053; 80307; 80320; 81001; 81025; 83605; 85025; 93005; 96372; 96374; 96376; 99283; A4216; J2060; J2560; Q0162; A9270; G0480

== ENCOUNTER 2025-05-26 12:36 | Emergency (ER) | payer MEDICAID, SELFPAY ==
[2025-05-26 12:40] VITALS: BP 119/79; PULSE 77; RESP 19; TEMP 36.8; O2SAT 96
[2025-05-26 12:43] VITALS: PULSE 72; O2SAT 98; BMI 31.4
--- NOTE | 2025-05-26 13:39 | XR_ITS ---
EXAMINATION: PA chest single view TECHNIQUE: Upright PA chest single view Date and time: May 26, 2025, 1411 hours, comparison April 10, 2024 INDICATION: Chest pain shortness of breath today. FINDINGS: Normal heart size Lungs are clear. Osseous structures are intact IMPRESSION: No active disease
--- NOTE | 2025-05-26 13:39 | EKG_ITS ---
[facility] Test Date: 2025-05-26 Pat Name: RAYMUNDO PHAN Department: Room: - Gender: Female Emergency Department Aide: : 1985 Requested By: Armando Smith Order Number: [id number] Reading MD: Armando Smith Measurements Intervals [place] Rate: 67 P: 23 OK: 145 QRS: 44 QRSD: 89 T: 30 QT: 396 QTc: 419 Interpretive Statements SINUS RHYTHM Compared to ECG 04/01/2025 20:56:47 Left anterior fascicular block no longer present Myocardial infarct finding no longer present /store/S0/[id number]
[2025-05-26] MEDS: IBUPROFEN TAB 400 MG TABLET 800 MG PO (13:48)
[2025-05-26 14:14] LABS: Basophils # (Auto) 0.0 Thou/mm3 (0.0-0.2); Basophils % (Auto) 0 % (0-2.5); Eosinophils # (Auto) 0.0 Thou/mm3 (0.0-0.5); Eosinophils % (Auto) 0 % (0-10); Hematocrit 32.4 % (36.0-46.0); Hemoglobin 10.2 g/dL (12.0-16.0); Immature Granulocytes Auto 0.01 Thou/mm3 (0.00-0.00); Lymphocytes # (Auto) 1.4 Thou/mm3 (1.0-4.8); Lymphocytes % (Auto) 30 % (10-50); Mean Corpuscular HGB Conc 31.5 g/dl (31.0-37.0); Mean Corpuscular Hemoglobin 27.1 pg (25.0-35.0); Mean Corpuscular Volume 86 fL (80-100); Monocytes # (Auto) 0.3 Thou/mm3 (0.0-0.8); Monocytes % (Auto) 6 % (0-12); Neutrophils # (Auto) 2.9 Thou/mm3 (1.8-7.7); Neutrophils % (Auto) 63 % (37-80); Nucleated Red Blood Cell # 0.00 Thou/mm3 (0.00-0.00); Nucleated Red Blood Cell % 0 /100 WBC (0); Platelet Count 336 Thou/mm3 (140-440); RDW Standard Deviation 44.6 fL (36.4-46.3); Red Blood Count 3.77 Miln/mm3 (4.00-5.20); White Blood Count 4.5 Thou/mm3 (3.6-11.0)
[2025-05-26 14:28] LABS: B-Type Natriuretic Peptide < 20 pg/mL (0-100)
[2025-05-26 14:41] LABS: Alanine Aminotransferase < 7 U/L (10-49); Albumin, Serum 4.5 gm/dL (3.5-5.0); Albumin/Globulin Ratio 1.9 (1.2-2.2); Alkaline Phosphatase 43 U/L (46-116); Anion Gap 6 (7-16); Aspartate Amino Transferase 13 U/L (0-34); BUN/Creatinine Ratio 11 Ratio (12-20); Bilirubin,Total 0.2 mg/dL (0.3-1.2); Blood Urea Nitrogen 9 mg/dL (9-23); Calcium 9.3 mg/dL (8.3-10.6); Calcium (Corrected) 9.3 mg/dL (8.5-10.1); Carbon Dioxide 26.8 mMol/L (20.0-31.0); Chloride 107 mMol/L (98-107); Creatinine (Component) 0.8 mg/dL (0.6-1.3); Estimated Creatinine Clearance 101.1 mL/min (>60); Globulin 2.4 gm/dL (2.3-3.5); Glucose 95 mg/dL (74-106); Osmolality,Calculated 278 (275-295); Potassium 4.5 mMol/L (3.4-5.1); Sodium 140 mMol/L (136-145); Thyroid Stimulating Hormone 0.71 uIU/mL (0.55-4.78); Total Protein 6.9 gm/dL (5.7-8.2); Troponin I < 0.002 ng/mL (0.0-0.045); eGFR > 60 See Note
--- NOTE | 2025-07-11 15:17 | PD.EDCHEST ---
ED Chest Pain RME/HPI General Chief Complaint: Anxiety Stated Complaint: ANXIETY Time Seen by Provider: 05/26/25 13:19 Source: patient Arrival date/time: 05/26/25 12:36 This is a case of 40-year-old female with history of anxiety came into the emergency room due to chest pain palpitation and feeling anxious no other symptoms the symptoms started today denies any suicidal homicidal ideation denies any hallucination or delusion denies shortness of breath Limitations: no limitations Related Data Home Medications ?Medication ?Instructions ?Recorded ?Confirmed ferrous sulfate 325 mg (65 mg 325 mg PO QDAY 11/24/20 12/07/24 iron) tablet (FeroSul) ibuprofen 600 mg tablet 400 mg PO Q8H PRN Pain 11/24/20 12/07/24 tizanidine 6 mg capsule 6 mg PO BID 04/15/24 12/06/24 docusate sodium 100 mg capsule 100 mg PO .QD PRN constipation 12/06/24 12/06/24 gabapentin 300 mg capsule 300 mg PO QAM 12/06/24 12/06/24 gabapentin 600 mg tablet 600 mg PO HS 12/06/24 12/06/24 hydrocortisone 1 % topical cream 1 applic NC BID 12/06/24 12/07/24 quetiapine 100 mg tablet 300 mg PO HS 12/06/24 12/06/24 sennosides 8.6 mg tablet (senna) 17.2 mg PO HS PRN constipation 12/06/24 12/06/24 temazepam 15 mg capsule 30 mg PO HS 12/06/24 12/06/24 buprenorphine HCl 2 mg sublingual 4 mg BID 12/07/24 tablet magnesium oxide 400 mg (241.3 mg 400 mg PO QDAY 12/07/24 12/07/24 magnesium) tablet Previous Rx's ?Medication ?Instructions ?Recorded albuterol sulfate 90 mcg/actuation 1 inh inhalation QID PRN shortness 11/28/23 aerosol inhaler of breath or wheezing #8.5 grams chlordiazepoxide HCl 25 mg capsule 25 mg PO TID PRN agitation #20 caps 04/02/25 chlordiazepoxide HCl 25 mg capsule 25 mg PO TID PRN agitation #20 caps 04/02/25 ondansetron 4 mg disintegrating 4 mg PO Q6H PRN nausea and 04/02/25 tablet vomiting #20 tabs hydroxyzine pamoate 25 mg capsule 25 mg PO BID PRN anxiety #10 caps 05/26/25 ondansetron 4 mg disintegrating 4 mg PO Q8H #10 tabs 06/23/25 tablet Allergies Allergy/AdvReac Type Severity Reaction Status Date / Time adhesive tape Allergy Severe RASH Verified 06/23/25 17:00 zolpidem AdvReac Severe HALLUCINATI Verified 06/23/25 17:00 ONS Review of Systems Review of Systems Systems Reviewed: All systems reviewed, normal except as documented Past Medical History Past Medical History CARDIAC: Positive Hypertension; Negative Cardiac Disorders or Congestive Heart Failure RESPIRATORY: Positive Asthma; Negative Chronic Obstructive Pulmonary Disease (COPD) GASTROINTESTINAL: Positive Obesity GENITOURINARY: Negative Renal Disease REPRODUCTIVE: Positive Previous Pregnancies ENDOCRINE: Negative Diabetes Mellitus Type 1 or Diabetes Mellitus Type 2 HEMATOLOGIC: Negative Sickle Cell Disease PSYCHO/SOCIAL: Positive Depression, Anxiety and Post Traumatic Stress Disorder OTHER HISTORY: Positive Falls Surgical History SURGICAL: Positive Tonsillectomy, Gastric Bypass Surgery and Section Social History SMOKING STATUS: Never smoker ED Exam General Limitations: Present no limitations General appearance: Present alert, in no apparent distress and other (Patient is awake alert oriented not in distress nontoxic looking well-hydrated well-nourished) Head Head exam: Present atraumatic, normocephalic and normal inspection Eye Eye exam: Present normal appearance, PERRL and EOMI ENT ENT exam: Present normal exam, normal oropharynx and mucous membranes moist Neck Neck exam: Present normal inspection, full ROM and trachea midline Chest Chest inspection: Present normal inspection and symmetric chest wall rise; Absent tenderness Respiratory Respiratory exam: Present normal lung sounds bilaterally; Absent respiratory distress, wheezes, stridor, accessory muscle use or prolonged expiratory phase Cardiovascular Cardiovascular exam: Present regular rate, normal rhythm and normal heart sounds; Absent bradycardia, tachycardia, irregular rhythm, systolic murmur or diastolic murmur Abdominal Exam Abdominal exam: Present soft and normal bowel sounds; Absent distention, tenderness, guarding, rebound, rigidity, diminished bowel sounds, hyperactive bowel sounds or hypoactive bowel sounds Extremities Exam Extremities exam: Present normal inspection and full ROM Back Exam Back exam: Present normal inspection and full ROM Neurological Exam Neurological exam: Present alert, oriented X3, CN II-XII intact, normal gait and reflexes normal; Absent motor sensory deficit Psychiatric Psychiatric exam: Present normal affect, normal mood and anxious; Absent depressed, agitated, flat affect, manic, homicidal ideation or suicidal ideation Skin Skin exam: Present warm, dry, intact and normal color Course Quality Measures none Orders Category Date Time Status EKG (ED ONLY) *Do not use* NOW Care 05/26/25 13:39 Completed EKG (ED Only) Stat Exams 05/26/25 13:39 Draft XR chest 1V Stat Exams 05/26/25 13:39 Completed BNP [B-Type Natriuretic Peptide] Stat Lab 05/26/25 14:01 Completed CBC Stat Lab 05/26/25 14:01 Completed CMP [Comprehensive Metabolic Panel] Stat Lab 05/26/25 14:01 Completed TSH [Thyroid Stimulating Hormone] Stat Lab 05/26/25 14:01 Completed Troponin I Stat Lab 05/26/25 14:01 Completed Ibuprofen Tab [Motrin Tab] Med 05/26/25 13:40 Discontinued 800 mg PO X1 ONE LORazepam [Ativan] Med 05/26/25 13:40 Discontinued 1 mg PO X1 ONE Vital Signs Vital signs: Vital Signs Temperature 98.2 F 05/26/25 12:40 Pulse Rate 77 05/26/25 12:40 Respiratory Rate 19 05/26/25 12:40 Blood Pressure 119/79 05/26/25 12:40 Pulse Oximetry (%) 96 05/26/25 12:40 Oxygen Delivery Method Room Air 05/26/25 12:40 Vital signs stable Chest Pain MDM Narrative MDM Narrative:: Patient was discharged with comfortable condition walking with stable gait. Patient verbalized no further complains explained diagnosis and answered patient question. Patient is comfortable with the proposed management plan including the need to follow up with his/her primary care physician and any specialist if applicable Discussed patient for any urgent condition or worsening sx, He/She needed to go to emergency room immediately or call 911. Patient acknowledge the responsibility to follow up as instructed and to monitor her/his symptoms. For any persistence of the symptoms for more than 3-5 days return precaution advised. Discussed the result of the test and was given printed discharge instruction Patient data External records reviewed:: [facility] previous records Clinical information provided by:: patient Social determinants that could affect healthcare access:: none Patient has the following chronic illnesses:: NONE How is presenting disease/condition affected by chronic disease/condition?: no chronic disease Evaluation data The following diagnostics were reviewed and interpreted by me:: lab results, radiology exam(s) and EKG tracing(s) Lab and/or radiology exams considered but not ordered:: REVIEWED Interpretation Summary: REVIEWED Medications / Prescriptions Medications or Prescriptions considered but not ordered:: GIVEN Medication administrations:: Medication Administration History Discontinued Medications Ibuprofen (Ibuprofen Tab 400 Mg Tablet) 800 mg PO X1 ONE Stop: 05/26/25 13:41 Last Admin: 05/26/25 13:48 Dose: 800 mg Documented By: OA Lorazepam (Lorazepam 0.5 Mg Tablet) 1 mg PO X1 ONE Stop: 05/26/25 13:41 Last Admin: 05/26/25 13:47 Dose: 1 mg Documented By: OA GIVEN Consultations Consultation(s) initiated? (list below): No Diagnosis Chest Pain Differential Diagnosis: costochondritis Most likely diagnosis given after review of the tests above:: ANXIETY Admission Indicated Admission indicated?: not indicated Explain why admission is indicated or not indicated:: NOT INDICATED Admission Request Was there a request for admission?: No Admission Attestation Admission request attestation: NOT INDICATED Disposition Plan Disposition Plan: Discharge Discharge Attestation Discharge Attestation: The patient and all family members were given an opportunity to ask questions and understood the discharge instructions. Discharge instructions specifically effects, indications for sooner follow up or return to the emergency department, and the expected course of current diagnosis. Patient condition: Stable Discharge Plan Plan Patient Disposition: HOME (Self Care) Patient condition on transfer: Stable Prescriptions/Referrals Prescriptions/Med Rec: New hydroxyzine pamoate 25 mg capsule 25 mg PO BID PRN (Reason: anxiety) Qty: 10 0RF No Action ferrous sulfate [FeroSul] 325 mg (65 mg iron) Tablet 325 mg PO QDAY ibuprofen 600 mg Tablet 400 mg PO Q8H PRN (Reason: Pain) albuterol sulfate 90 mcg/actuation HFA aerosol inhaler 1 inh inhalation QID PRN (Reason: shortness of breath or wheezing) Qty: 8.5 0RF quetiapine 100 mg tablet 300 mg PO HS Patient Comments: PLEASE SEE ATTACHED FOR DETAILED DIRECTIONS gabapentin 300 mg capsule 300 mg PO QAM Patient Comments: TAKE 1 CAPSULE BY MOUTH IN THE MORNING AND TAKE 2 CAPSULES IN THE EVENING gabapentin 600 mg tablet 600 mg PO HS temazepam 15 mg capsule 30 mg PO HS Patient Comments: TAKE 1 CAPSULE BY MOUTH ON SUNDAY AND SUNDAY. OK TO TAKE 2 CAPSULES ON OTHER DAYS docusate sodium 100 mg capsule 100 mg PO .QD PRN (Reason: constipation) Patient Comments: TAKE 1 CAPSULE BY MOUTH TWICE A DAY NEEDED FOR CONSTIPATION sennosides [senna] 8.6 mg tablet 17.2 mg PO HS PRN (Reason: constipation) Patient Comments: TAKE 2 TABLETS BY MOUTH EVERY DAY AT BEDTIME NEEDED FOR CONSTIPATION hydrocortisone 1 % cream 1 applic NC BID Patient Comments: APPLY TO AFFECTED AREA TWICE A DAY FOR 10 DAYS magnesium oxide 400 mg (241.3 mg magnesium) tablet 400 mg PO QDAY Patient Comments: take 1 tablet by mouth once daily buprenorphine HCl 2 mg tablet, sublingual 4 mg BID Patient Comments: TAKE 2 TABS IN THE MORNING AND 2 TABS IN THE EVENING. DO NOT TAKE WITH OTHER OPIOIDS tizanidine 6 mg capsule 6 mg PO BID Patient Comments: take 1 capsule by mouth twice a day if needed for muscle spasm MAY CAUSE DROWSINESS, DIZZNESS chlordiazepoxide HCl 25 mg capsule 25 mg PO TID PRN (Reason: agitation) Qty: 20 0RF chlordiazepoxide HCl 25 mg capsule 25 mg PO TID PRN (Reason: agitation) Qty: 20 0RF ondansetron 4 mg tablet,disintegrating 4 mg PO Q6H PRN (Reason: nausea and vomiting) Qty: 20 0RF ondansetron 4 mg tablet,disintegrating 4 mg PO Q8H Qty: 10 0RF Problem List Clinical Impression: Heart palpitations, Chest pain of unknown etiology, Anxiety Patient/Caregiver Discharge Instructions Education Materials: ED Anxiety Reaction, ED Chest Pain, Uncertain Cause, ED Palpitations Additional Instructions: It is very important to follow-up with your director compensation for further evaluation and treatment of chest pain and palpitation for possible echocardiogram stress test and Holter monitor also you need to see a psychiatrist psychologist for anxiety follow-up with your primary care physician in 2 days for reevaluation and for any recurrence persistent worsening symptoms or any emergent concern return to the emergency room immediately or call 911 take your medication as directed keep hydrated Print Language: Guinean Stand Alone Forms: Vonnie Award Info., Patient Portal Info Letter PA/MEDICAL ASSISTING INSTRUCTOR Supervising Physician PA/MEDICAL ASSISTING INSTRUCTOR Supervising Physician: dr burns
== END 2025-05-26 15:43 | disposition home or self-care (01) ==
LOC: SERX 15:21
PROVIDERS: Nurse Practitioner Family; Emergency Provider Family Medicine
DX: F41.9 Anxiety disorder, unspecified (principal); R07.9 Chest pain, unspecified; R00.2 Palpitations; R06.02 Shortness of breath
CPT/HCPCS: 36415; 71045; 80053; 81001; 81025; 83880; 84443; 84484; 85025; 93005; 99283; A9270